=== PATIENT | female | born 1995 | race Caucasian/White ===

== ENCOUNTER → 2021-09-29 | Outpatient (CLI) | payer OTHER | LOC: LAB 15:35 | DX: Z32.00 Encounter for pregnancy test, result unknown (principal) | CPT/HCPCS: 84702 ==

== ENCOUNTER 2022-03-14 07:56 | Outpatient (CLI) | payer OTHER | END 2022-03-14 11:15 | disposition home or self-care (01) | LOC: GENOP 07:56 | DX: O47.03 False labor before 37 completed weeks of gestation, third trimester (principal); Z3A.28 28 weeks gestation of pregnancy; O99.283 Endocrine, nutritional and metabolic diseases complicating pregnancy, third trimester; E28.2 Polycystic ovarian syndrome; Z88.6 Allergy status to analgesic agent; Z88.2 Allergy status to sulfonamides | CPT/HCPCS: 81001; G0463 ==

== ENCOUNTER 2022-05-13 09:33 | Inpatient (IN) | payer OTHER ==
[~2022-05-13] VITALS: Ht 167.6 cm; Wt 95.3 kg
[2022-05-13 11:25] LABS: HEMOGLOBIN 12.9 gm/dl (12.3-15.3); RED BLOOD COUNT 4.64 M/UL (4.00-5.10); WHITE BLOOD COUNT 8.9 K/UL (4.5-11.0)
[2022-05-13] MEDS ORDERED: COLACE 100MG C100 MG PO ×2 (14:37→14:45)
[2022-05-13 14:54] LABS: BUN/CREATININE RATIO 14 (0-10)
[2022-05-14 05:56] LABS: HEMOGLOBIN 10.9 gm/dl (12.3-15.3)
== END 2022-05-15 16:50 | disposition home or self-care (01) | DRG 807 ==
LOC: GENOP 09:33 → OB 10:03
PROVIDERS: ADMIT Obstetrics & Gynecology
PROC: 10E0XZZ Delivery of Products of Conception, External Approach (ICD-10-PCS; principal; 2022-05-13)
PROC: 4A1HXCZ Monitoring of Products of Conception, Cardiac Rate, External Approach (ICD-10-PCS; 2022-05-13)
DX: O36.5930 Maternal care for other known or suspected poor fetal growth, third trimester, not applicable or unspecified (principal); Z37.0 Single live birth; Z3A.37 37 weeks gestation of pregnancy; O99.344 Other mental disorders complicating childbirth; F32.A Depression, unspecified; O99.284 Endocrine, nutritional and metabolic diseases complicating childbirth; Z28.310 Unvaccinated for COVID-19; E03.9 Hypothyroidism, unspecified; E28.2 Polycystic ovarian syndrome; O62.2 Other uterine inertia; Z88.2 Allergy status to sulfonamides; Z88.8 Allergy status to other drugs, medicaments and biological substances; Z90.49 Acquired absence of other specified parts of digestive tract; Z82.0 Family history of epilepsy and other diseases of the nervous system; Z82.49 Family history of ischemic heart disease and other diseases of the circulatory system; Z81.8 Family history of other mental and behavioral disorders; Z82.5 Family history of asthma and other chronic lower respiratory diseases; Z83.3 Family history of diabetes mellitus; Z80.1 Family history of malignant neoplasm of trachea, bronchus and lung; Z84.1 Family history of disorders of kidney and ureter
CPT/HCPCS: 36415; 80053; 83615; 84550; 85014; 85018; 85025; J2210; J2590